=== PATIENT | female | born 2000 | race Two or more races ===

== ENCOUNTER 2022-12-23 12:22 | Emergency (ER) | payer OTHER ==
[~2022-12-23] VITALS: Ht 160 cm; Wt 89.6 kg
[2022-12-23 12:31] VITALS: BP 123/76; PULSE 108; RESP 16; TEMP 98; O2SAT 98
[2022-12-23] MEDS ORDERED: ACETAMINOPHEN 500 MG TAB PO ONE (14:30)
[2022-12-23] MEDS ORDERED: METH-1182 PO (14:33)
[2022-12-23] MEDS ORDERED: IBUP-1456 PO (14:33)
== END 2022-12-23 14:58 | disposition home or self-care (01) ==
LOC: ER 12:22
DX: S46.912A Strain of unspecified muscle, fascia and tendon at shoulder and upper arm level, left arm, initial encounter (principal); S00.03XA Contusion of scalp, initial encounter; W18.09XA Striking against other object with subsequent fall, initial encounter; Y93.89 Activity, other specified; Y92.89 Other specified places as the place of occurrence of the external cause; Y99.8 Other external cause status
CPT/HCPCS: 70450; 73030